=== PATIENT | female | born 1970 ===

== ENCOUNTER 2019-03-08 11:00 | Inpatient (IN) | payer OTHER ==
[~2019-03-08] VITALS: Ht 160 cm; Wt 65.8 kg
[2019-03-12] MEDS ORDERED: ULTRACET PO (07:48)
[2019-03-12] MEDS ORDERED: COLACE100 MG PO (07:48)
[2019-03-12] MEDS ORDERED: HEPARIN SO5000 UNIT3 SUBCUTANEO (07:55)
== END 2019-03-12 09:20 | disposition home or self-care (01) | DRG 743 ==
LOC: O/R 03-11 06:00 → SURH 03-11 11:00 → OB/GYN 03-11 14:45
PROVIDERS: ADMIT Obstetrics & Gynecology
PROC: 0UT7FZZ Resection of Bilateral Fallopian Tubes, Via Natural or Artificial Opening With Percutaneous Endoscopic Assistance (ICD-10-PCS; 2019-03-11)
PROC: 0JNC3ZZ Release Pelvic Region Subcutaneous Tissue and Fascia, Percutaneous Approach (ICD-10-PCS; 2019-03-11)
PROC: 0UT9FZZ Resection of Uterus, Via Natural or Artificial Opening With Percutaneous Endoscopic Assistance (ICD-10-PCS; principal; 2019-03-11 14:00)
DX: D25.1 Intramural leiomyoma of uterus (principal); D25.0 Submucous leiomyoma of uterus; D25.2 Subserosal leiomyoma of uterus; N72 Inflammatory disease of cervix uteri; N83.8 Other noninflammatory disorders of ovary, fallopian tube and broad ligament; N92.0 Excessive and frequent menstruation with regular cycle; N73.6 Female pelvic peritoneal adhesions (postinfective)